=== PATIENT | male | born 1975 | race Caucasian/White ===

== ENCOUNTER 2016-09-09 15:57 | Emergency (ER) | payer SELFPAY ==
[~2016-09-09] VITALS: Ht 185.4 cm; Wt 111.1 kg
[2016-09-09] MEDS ORDERED: LAMICTAL (16:13)
[2016-09-09] MEDS ORDERED: LAMO25TA (16:13)
[2016-09-09] MEDS ORDERED: morphine INJ 10 MG/ML 1ML (SYR OR VIAL) IVP STA (17:22)
--- NOTE | 2016-09-09 17:29 | ED Back Pain ---
General Chief Complaint: Lower Extremity Stated Complaint: L LEG PAIN/NUMBNESS/SWELLING Nursing Triage Note: AMBULATED TO ROOM 10 WITH COMPLAINTS OF PAIN/NUMBESS/SWELLING THAT STARTS IN LEFT BUTTOCK GOING DOWN LEFT LEG X5 DAYS. HAS BEEN TAKING IBUPROFEN WITH NO RELIEF. LAST DOSE LAST NOC. STATES HE STARTED SOME NEW MEDS FOR BIPOLAR ABOUT THE TIME HIS LEG STARTED HURTING. Nursing Sepsis Screen: No Definite Risk Source of Information: Patient Exam Limitations: No Limitations History of Present Illness Time Seen by Provider: 17:05 Initial Comments 41-year-old male patient presents to the emergency department with complaints of pain, numbness of the left testicle, and numbness of the left lower extremity beginning at the left buttock down to the left foot. Onset 5 days. States he has had previous episodes similar to this. On this occasion, however , he does complain of swelling of the left lower extremity which is new. Denies any known injury. Denies recent travel or sitting for long periods. Previous back surgery 12 yrs ago for a cyst on the spine. Denies bowel or bladder incontinence. Denies personal history or family history of clotting disorders. Positive claudication. Location: Lumbar Spine Timing/Duration: 4-5 Days, Getting Worse Pain/Injury Location: Back Radiation: Other (left lower extremity) Method of Injury: Unknown (denies known injury) Modifying Factors: Worse With Movement, Worse With Other (worsened palpation and elevation) Associated Symptoms: No muscle spasms, No fever, No weakness, numbness in legs/ feet (left lower extremity), lower back pain, No loss of bladder control, No loss of bowel control Allergies and Home Medications Allergies Coded Allergies: No Known Drug Allergies (Unverified , 09/09/16) Home Medications Cyclobenzaprine HCl 10 Mg Tablet, 10 MG PO Q8H PRN for SPASMS, #14 Ref 0 Prescribed by: JAI SEGOVIA on 09/09/161943 Lamotrigine 25 Mg Tablet, #90 (Reported) Oxycodone HCl/Acetaminophen 1 Each Tablet, 1 EACH PO Q4H PRN for pain, #14 Ref 0 Prescribed by: JAI SEGOVIA on 09/09/161943 Prednisone 20 Mg Tab, 40 MG PO DAILY, #10 Ref 0 Prescribed by: JAI SEGOVIA on 09/09/161943 [Lamictal] , (Reported) Constitutional: No chills, No diaphoresis, No dizziness, No fever, No malaise, No weakness EENTM: no symptoms reported Respiratory: No cough, No dyspnea on exertion, No short of breath Cardiovascular: No chest pain, edema (left lower extremity), No palpitations, No syncope Gastrointestinal: No abdominal pain, No constipation, No diarrhea, No nausea, No vomiting Genitourinary: No decreased output, No dysuria, No frequency, No hematuria, No incontinence, No pain Musculoskeletal: see HPI, No neck pain Skin: no symptoms reported Psychiatric/Neurological: See HPI, Denies Headache, Numbness, Denies Seizure, Denies Weakness All Other Systems Reviewed Negative Unless Noted: Yes (Negative excepted noted.) Past Zbcavzh-Aqlyek-Jllvlv Hx Patient Social History Alcohol Use: Denies Use Recreational Drug Use: Yes Drug of Choice: POT Smoking Status: Never a Smoker Recent Foreign Travel: No Contact w/Someone Who Travel: No Recent Infectious Disease Expo: No Recent Hopitalizations: No Surgeries HX Surgeries: Yes (BACK, FINGER) Surgeries: Orthopedic Respiratory Hx Respiratory Disorders: No Cardiovascular Hx Cardiac Disorders: No Neurological Hx Neurological Disorders: No Reproductive System Hx Reproductive Disorders: No Genitourinary Hx Genitourinary Disorders: No Gastrointestinal Hx Gastrointestinal Disorders: No Musculoskeletal Hx Musculoskeletal Disorders: No Endocrine Hx Endocrine Disorders: No HEENT HX ENT Disorders: No Cancer Hx Cancer: No Psychosocial Hx Psychiatric Problems: Yes Behavioral Health Disorders: Bipolar Blood Transfusions Hx Blood Disorders: No Reviewed Nursing Assessment Reviewed/Agree w Nursing PMH: Yes Family Medical History Significant Family History: No Pertinent Family Hx Physical Exam Vital Signs Vital Sign - Last 12Hours 09/09/16 16:00 Temp 98.0 Pulse 80 Resp 16 B/P (MAP) 154/98 Pulse Ox 96 Capillary Refill : Less Than 3 Seconds General Appearance: No Apparent Distress, WD/WN Neck: Full Range of Motion, Normal Inspection, Non Tender, Supple Cardiovascular: Regular Rate, Rhythm, No Murmur, Normal Peripheral Pulses Respiratory: Lungs Clear, Normal Breath Sounds, No Accessory Muscle Use Peripheral Pulses: 2+ Dorsalis Pedis (R) (left posterior tibialis 2+), 2+ Left Dors-Pedis (L) (right posterior tibialis 2+) Gastrointestinal: Normal Bowel Sounds, No Organomegaly, Non Tender, Soft, No Distended Back: Normal Inspection, No Vertebral Tenderness, No Decreased Range of Motion Extremity: Calf Tenderness (left calf tenderness), Swelling (LLE swelling.), Other (LLE warmth noted w/o erythema, lesions, or open wound.) Neurologic/Psychiatric: Alert, Oriented x3, Normal Mood/Affect, No Motor Weakness, Sensory Deficit (LLE) Skin: Normal Color, Warm/Dry Progress/Results/Core Measures Results/Orders Lab Results Laboratory Tests Test 09/09/16 18:17 Range/Units White Blood Count 9.1 4.3-11.0 10^3/uL Red Blood Count 4.86 4.35-5.85 10^6/uL Hemoglobin 14.4 13.3-17.7 G/DL Hematocrit 42 40-54 % Mean Corpuscular Volume 87 80-99 FL Mean Corpuscular Hemoglobin 30 25-34 PG Mean Corpuscular Hemoglobin Concent 34 32-36 G/DL Red Cell Distribution Width 13.2 10.0-14.5 % Platelet Count 257 130-400 10^3/uL Mean Platelet Volume 10.2 7.4-10.4 FL Neutrophils (%) (Auto) 53 42-75 % Lymphocytes (%) (Auto) 33 12-44 % Monocytes (%) (Auto) 9 0-12 % Eosinophils (%) (Auto) 5 0-10 % Basophils (%) (Auto) 1 0-10 % Neutrophils # (Auto) 4.8 1.8-7.8 X 10^3 Lymphocytes # (Auto) 3.0 1.0-4.0 X 10^3 Monocytes # (Auto) 0.8 0.0-1.0 X 10^3 Eosinophils # (Auto) 0.5 H 0.0-0.3 10^3/uL Basophils # (Auto) 0.1 0.0-0.1 10^3/uL Prothrombin Time 12.3 12.2-14.7 SEC INR Comment 0.9 0.8-1.4 Activated Partial Thromboplast Time 28 24-35 SEC Sodium Level 140 135-145 MMOL/L Potassium Level 3.7 3.6-5.0 MMOL/L Chloride Level 107 98-107 MMOL/L Carbon Dioxide Level 23 21-32 MMOL/L Anion Gap 10 5-14 MMOL/L Blood Urea Nitrogen 14 7-18 MG/DL Creatinine 1.19 0.60-1.30 MG/DL Estimat Glomerular Filtration Rate > 60 BUN/Creatinine Ratio 12 Glucose Level 92 70-105 MG/DL Calcium Level 8.9 8.5-10.1 MG/DL Total Bilirubin 0.8 0.1-1.0 MG/DL Aspartate Amino Transf (AST/SGOT) 20 5-34 U/L Alanine Aminotransferase (ALT/SGPT) 33 0-55 U/L Alkaline Phosphatase 66 40-136 U/L Total Protein 7.1 6.4-8.2 G/DL Albumin 4.2 3.2-4.5 G/DL My Orders Orders - JAI SEGOVIA Ct Lumbar Spine Wo (09/09/16 17:22) Us Venous Lower Ext Lt (09/09/16:) Cbc With Automated Diff (09/09/16) Comprehensive Metabolic Panel (09/09/16:) Protime With Inr (09/09/16:) Partial Thromboplastin Time (09/09/16:) Saline Lock/Iv-Start (09/09/16:) Morphine Injection (Morphine Injection (09/09/16 17:22) Hydromorphone Injection (Dilaudid Inject (09/09/16 18:38) Vital Signs/I&O Vital Sign - Last 12Hours 09/09/16 09/09/16 16:00 19:56 Temp 98.0 98.0 Pulse 80 80 Resp 16 16 B/P (MAP) 154/98 Pulse Ox 96 96 Blood Pressure Mean: 116 Diagnostic Imaging Diagonstic Imaging: CT Plain Films/CT/US/NM/MRI: other (lumbar spine) Comments FINDINGS: There is a chronic appearing unilateral pars defect on the left at L5. The vertebral body heights are well maintained. No other fractures are identified. There does appear to be some annular bulging at L3-4 and L4-5 as well as to a lesser degree L5-S1. The visualized intrapelvic soft tissue structures are unremarkable. IMPRESSION: 1. 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 2. Mild degenerative disease at L3-4 and L4-5. This could be better evaluated with an MRI. 3. Otherwise, unremarkable CT lumbar spine. Dictated by: Dictated on workstation # [id number] Reviewed: Reviewed by Me (radiology report reviewed by me) Diagonstic Imaging: Ultrasound Plain Films/CT/US/NM/MRI: leg (left lower extremity venous Doppler) Comments FINDINGS: The left common femoral, femoral and popliteal veins demonstrate normal response to compression, augmentation and Valsalva. There is a fluid collection in the popliteal fossa measuring 4.7 x 2.6 x 0.6 cm. There is also a fluid collection in the medial calf near the knee measuring 4.9 x 0.8 x 4 cm. IMPRESSION: 1. No evidence of deep venous thrombosis in the left lower extremity. 2. Two separate fluid collections about the knee as described. Dictated by: Dictated on workstation # [id number] Reviewed: Reviewed by Me (radiology report reviewed by me) Departure Communication Progress Notes Diagnostic findings discussed with the patient. Patient was given 10 mg of morphine with mild relief. Patient was then given 1 mg of Dilaudid with improvement in symptoms. Plan for discharge to home. All return precautions were discussed with the patient as described in the discharge instructions of this report. Patient voices understanding and agrees with the treatment plan. Patient ambulated from the emergency department without difficulty. Impression Impression: Primary Impression: Lumbar radiculopathy, acute Additional Impressions: Popliteal cyst Cyst of soft tissue Disposition: HOME, SELF-CARE Condition: Improved Departure-Patient Inst. Decision time for Depature: 19:41 Referrals: MARCIN HURLEY MD NO,LOCAL PHYSICIAN (PCP) Primary Care Physician SAVANAH JACOBSON WALKER A MD Patient Instructions: Rebolledo's Cyst (DC), Radiculopathy (DC) Add. Discharge Instructions: All discharge instructions reviewed with patient and/or family. Voiced understanding. Medications as instructed. Ibuprofen 800 mg by mouth every 8 hours as needed for pain. Elevate left lower extremity on pillows above the level of the heart. Ice packs or heating pads as needed for pain. Compression socks as discussed or left lower extremity swelling. Avoid sitting or riding in a car for greater than one and half to 2 hours without walking. Follow-up with your family practitioner of choice for recheck and for repeat ultrasound as an outpatient in the next 3-4 weeks. Call for appointment time Saturday. Return to the emergency department for worsened pain, numbness, numbness of the genitals, weakness, bowel incontinence, bladder incontinence, fever, discoloration, swelling, or any other concerns. Scripts Oxycodone HCl/Acetaminophen (Oxycodone-Acetaminophen 5-325) 1 Each Tablet 1 EACH PO Q4H Y for pain, #14 TAB 0 Refills Prov: JAI SEGOVIA 09/09/16 Cyclobenzaprine HCl (Cyclobenzaprine HCl) 10 Mg Tablet 10 MG PO Q8H Y for SPASMS, #14 TAB 0 Refills Prov: JAI SEGOVIA 09/09/16 Prednisone (Prednisone) 20 Mg Tab 40 MG PO DAILY, #10 TAB 0 Refills Prov: JAI SEGOVIA 09/09/16 JAI SEGOVIA September 09, 2016 17:29
--- NOTE | 2016-09-09 18:11 | Diagnostic Imaging Report ---
PROCEDURE: US left lower extremity venous. TECHNIQUE: Multiple real-time grayscale images were obtained over the left lower extremity in various projections. Additional duplex Doppler and color Doppler images were also obtained. INDICATION: Left leg swelling. FINDINGS: The left common femoral, femoral and popliteal veins demonstrate normal response to compression, augmentation and Valsalva. There is a fluid collection in the popliteal fossa measuring 4.7 x 2.6 x 0.6 cm. There is also a fluid collection in the medial calf near the knee measuring 4.9 x 0.8 x 4 cm. IMPRESSION: 1. No evidence of deep venous thrombosis in the left lower extremity. 2. Two separate fluid collections about the knee as described. Dictated by: Dictated on workstation # [id number]
[2016-09-09 18:25] LABS: BASOPHILS # (AUTO) 0.1 10^3/uL (0.0-0.1); BASOPHILS % (AUTO) 1 % (0-10); EOSINOPHILS # (AUTO) 0.5 10^3/uL (0.0-0.3); EOSINOPHILS % (AUTO) 5 % (0-10); LYMPHOCYTES % (AUTO) 33 % (12-44); MEAN CORPUSCULAR HEMOGLOBIN 30 PG (25-34); MEAN CORPUSCULAR HGB CONC 34 G/DL (32-36); MEAN CORPUSCULAR VOLUME 87 FL (80-99); MEAN PLATELET VOLUME 10.2 FL (7.4-10.4); MONOCYTES # (AUTO) 0.8 X 10^3 (0.0-1.0); MONOCYTES % (AUTO) 9 % (0-12); NEUTROPHILS # (AUTO) 4.8 X 10^3 (1.8-7.8); NEUTROPHILS % (AUTO) 53 % (42-75); PLATELET COUNT 257 10^3/uL (130-400); RED BLOOD COUNT 4.86 10^6/uL (4.35-5.85); RED CELL DISTRIBUTION WIDTH 13.2 % (10.0-14.5); WHITE BLOOD COUNT 9.1 10^3/uL (4.3-11.0)
--- NOTE | 2016-09-09 18:25 | Diagnostic Imaging Report ---
PROCEDURE: CT lumbar spine without contrast. TECHNIQUE: Multiple contiguous axial images were obtained through the lumbar spine without the use of intravenous contrast. Sagittal and coronal reformations were then performed. INDICATION: Low back pain radiating down the left leg. FINDINGS: There is a chronic appearing unilateral pars defect on the left at L5. The vertebral body heights are well maintained. No other fractures are identified. There does appear to be some annular bulging at L3-4 and L4-5 as well as to a lesser degree L5-S1. The visualized intrapelvic soft tissue structures are unremarkable. IMPRESSION: 1. 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 2. Mild degenerative disease at L3-4 and L4-5. This could be better evaluated with an MRI. 3. Otherwise, unremarkable CT lumbar spine. Dictated by: Dictated on workstation # [id number]
[2016-09-09 18:37] LABS: INR 0.9 (0.8-1.4); PROTHROMBIN TIME PATIENT 12.3 SEC (12.2-14.7)
[2016-09-09] MEDS ORDERED: HYDROmorphone (DILAUDID) 2 MG/ML VIAL IVP STA (18:38)
[2016-09-09 18:46] LABS: ALANINE AMINOTRANSFERASE 33 U/L (0-55); ALBUMIN 4.2 G/DL (3.2-4.5); ANION GAP 10 MMOL/L (5-14); ASPARTATE AMINO TRANSFERASE 20 U/L (5-34); BILIRUBIN,TOTAL 0.8 MG/DL (0.1-1.0); BLOOD UREA NITROGEN 14 MG/DL (7-18); BUN/CREATININE RATIO 12; CALCIUM 8.9 MG/DL (8.5-10.1); CARBON DIOXIDE 23 MMOL/L (21-32); CHLORIDE 107 MMOL/L (98-107); CREATININE SERUM 1.19 MG/DL (0.60-1.30); GFR ESTIMATED > 60; GLUCOSE 92 MG/DL (70-105); POTASSIUM 3.7 MMOL/L (3.6-5.0); SODIUM 140 MMOL/L (135-145); TOTAL PROTEIN 7.1 G/DL (6.4-8.2)
[2016-09-09] MEDS ORDERED: CYCL10TA9 PO (19:44)
[2016-09-09] MEDS ORDERED: PRD20T PO (19:44)
[2016-09-09] MEDS ORDERED: OXYC-471 PO (19:44)
[2016-09-09 19:56] VITALS: BP 154/98
== END 2016-09-09 19:56 | disposition home or self-care (01) ==
LOC: EDUNIT# 15:57 → ER 16:00
DX: M54.16 Radiculopathy, lumbar region (principal); M71.22 Synovial cyst of popliteal space [Baker], left knee; M79.9 Soft tissue disorder, unspecified; F31.9 Bipolar disorder, unspecified; Z79.899 Other long term (current) drug therapy
CPT/HCPCS: 36415; 72131; 80053; 85025; 85610; 85730; 96374; 96375

== ENCOUNTER → 2018-08-13 | Outpatient (CLI) | payer OTHER ==
[~2018-08-13] MED LIST: CYCL10TA9 PO; HOLD METFORMIN - RECEIVED CONTRAST 20 ML VIAL IV SCH; IOHEXOL 350 MG/ML 100 ML (OMNIPAQUE 350) VIAL IV ONE; LAMICTAL; LAMO25TA8; OXYC-471 PO; PRD20T PO
--- NOTE | 2018-08-13 14:24 | Diagnostic Imaging Report ---
PROCEDURE: CT chest with contrast only. TECHNIQUE: Multiple contiguous axial images were obtained through the chest after administration of intravenous contrast. Auto Exposure Controls were utilized during the CT exam to meet ALARA standards for radiation dose reduction. INDICATION: Exertional chest pain, shortness of air, symptoms greatest on the left anteriorly. COMPARISON: I have no previous. FINDINGS: The aorta is patent and nonaneurysmal. There is no central pulmonary arterial filling defect. There is no pleural or pericardial effusion. There were no findings of edema or pneumonia. Benign partly calcified mass right upper lobe laterally is consistent with chondroma 2.5 cm. No noncalcified or suspicious pulmonary nodule. No pleural or pericardial effusion. The heart size and its configuration appeared normal. No acute chest wall pathology, in particular, the left-sided ribs appeared intact. No hilar or mediastinal adenopathy. The axilla appeared unremarkable and the visualized upper abdomen showed mild hepatic steatosis with no acute appearing abnormality. IMPRESSION: Benign calcified right lung nodule, no acute chest wall pathology, pneumonia, effusion or other acute/suspicious abnormality. Dictated by: Dictated on workstation # [id number]
== END ==
LOC: RAD 12:21
PROVIDERS: ATTEND Nurse Practitioner Community Health
DX: R91.1 Solitary pulmonary nodule (principal); R06.02 Shortness of breath
CPT/HCPCS: 71260